=== PATIENT | female | born 1995 | race Caucasian/White ===

== ENCOUNTER 2019-03-25 13:08 | Observation (INO) ==
[~2019-03-25] VITALS: Ht 165.1 cm; Wt 92.0 kg
[2019-03-25] MEDS ORDERED: ONDANSETRON 2MG/ML, 2ML IVPush ONE (14:00)
[2019-03-25] MEDS ORDERED: LACTATED RINGERS 1,000 ML IVBOLUS ONE (14:00)
[2019-03-25] MEDS ORDERED: ONDANSETRON 2MG/ML, 2ML ONE (14:03)
[2019-03-25 14:10] VITALS: BP 121/69
[2019-03-25 14:35] LABS: MICROSCOPIC INDICATED
[2019-03-25] MEDS: LACTATED RINGERS 1,000 ML IV SCH ×2 (14:43→19:30)
[2019-03-25 15:03] LABS: RAPID INFLUENZA A Negative (Negative); RAPID INFLUENZA B Negative (Negative)
[2019-03-25] MEDS: D5%-LACTATED RINGERS 1,000 ML IV SCH ×2 (16:55→21:00)
[2019-03-25] MEDS ORDERED: PREN1TAB60 PO (17:54)
[2019-03-25 21:42] LABS: MICROSCOPIC INDICATED
[2019-03-25 21:54] LABS: CULTURE INDICATED? YES
== END 2019-03-25 21:55 | disposition home or self-care (01) ==
LOC: LDOP 13:08 → LDIP 15:54
PROVIDERS: ADMIT Obstetrics & Gynecology; ATTEND Obstetrics & Gynecology
DX: O21.2 Late vomiting of pregnancy (principal); Z3A.38 38 weeks gestation of pregnancy; Z79.899 Other long term (current) drug therapy
CPT/HCPCS: 59025; 81001; 81003; 87086; 87400; 96361; 96374; 99201; G0378; J2405; J7120; J7121; 96360; G0463

== ENCOUNTER 2019-03-26 06:37 | Inpatient (IN) | payer OTHER ==
[~2019-03-26] VITALS: Ht 165.1 cm; Wt 93.2 kg
[~2019-03-26 06:37] MED LIST: PREN1TAB60 PO
[2019-03-26] MEDS ORDERED: OXYTOCIN 30U/ 0.9% NaCL 500ML 500 ML IV ONE (06:55)
[2019-03-26] MEDS ORDERED: LACTATED RINGERS 1,000 ML IV SCH (06:55)
[2019-03-26] MEDS ORDERED: D5%-LACTATED RINGERS 1,000 ML IV SCH (06:55)
[2019-03-26] MEDS ORDERED: FENTANYL/BUPIV./NS/PF 250 ML EPIDCONT SCH (06:57)
[2019-03-26] MEDS ORDERED: FENTANYL PF 100 MCG/2ML IV PRN (07:00)
[2019-03-26] MEDS ORDERED: SODIUM CITRATE/CITRIC ACID 30 ML UDC PO PRN (07:00)
[2019-03-26] MEDS ORDERED: TERBUTALINE 1 MG/ML, 1ML IVPush PRN (07:00)
[2019-03-26] MEDS ORDERED: TERBUTALINE 1 MG/ML, 1ML SQ PRN (07:00)
[2019-03-26] MEDS ORDERED: SODIUM CHLORIDE FLUSH 10ML SYR IVF PRN (07:00)
[2019-03-26] MEDS ORDERED: ALUMINUM/MAG/SIMETHICONE 30 ML UDC PO PRN (07:00)
[2019-03-26] MEDS ORDERED: ONDANSETRON 2MG/ML, 2ML IVPush PRN (07:00)
[2019-03-26] MEDS ORDERED: METOCLOPRAMIDE 5 MG/ML, 2ML IVPush PRN (07:00)
[2019-03-26] MEDS ORDERED: CALCIUM CARBONATE 500 MG TAB.CHEW PO PRN (07:00)
[2019-03-26 07:24] LABS: BASOPHILS # (AUTO) 0.03 x10^3/uL (0-0.1); BASOPHILS % (AUTO) 0 % (0-1); EOSINOPHILS % (AUTO) 0 % (1-7); LYMPHOCYTES # (AUTO) 0.59 x10^3/uL (1-3.4); LYMPHOCYTES % (AUTO) 7 % (22-44); MD NO; MEAN CORPUSCULAR HEMOGLOBIN 27.7 pg (27.0-34.8); MEAN CORPUSCULAR HGB CONC 33.3 g/dL (32.4-35.8); MEAN CORPUSCULAR VOLUME 83.4 fL (80-100); MEAN PLATELET VOLUME 8.5 fL (7.4-10.4); MONOCYTES # (AUTO) 0.35 x10^3/uL (0.2-0.8); MONOCYTES % (AUTO) 4 % (2-9); NEUTROPHILS # (AUTO) 7.26 x10^3/uL (1.8-6.8); NEUTROPHILS % (AUTO) 88 % (42-75); PLATELET COUNT 194 x10^3/uL (130-400); RED BLOOD COUNT 4.82 x10^6/uL (3.82-5.3); RED CELL DISTRIBUTION WIDTH 14.4 % (9.6-15.2)
[2019-03-26] MEDS ORDERED: PLEASE ENTER HEIGHT AND WEIGHT MC SCH ×2 (08:30→09:00)
[2019-03-26] MEDS ORDERED: MISOPROSTOL 200 MCG TABLET ONE (09:30)
[2019-03-26] MEDS ORDERED: NEWBORN KIT ONE (09:30)
[2019-03-26] MEDS ORDERED: OXYTOCIN 30U/ 0.9% NaCL 500ML 500 ML ONE (09:30)
[2019-03-26] MEDS ORDERED: LIDOCAINE 1%, 20ML ONE (09:31)
[2019-03-26] MEDS ORDERED: OXYTOCIN 30U/ 0.9% NaCL 500ML 500 ML IV PRN (09:35)
[2019-03-26] MEDS ORDERED: TERBUTALINE 1 MG/ML, 1ML ONE (10:26)
[2019-03-26] MEDS ORDERED: CALCIUM CARBONATE 500 MG TAB.CHEW ONE (10:26)
[2019-03-26] MEDS ORDERED: FENTANYL PF 100 MCG/2ML ONE ×5 (11:08→17:02)
[2019-03-26] MEDS: FENTANYL PF 100 MCG/2ML IVPush PRN ×4 (11:10→15:53)
[2019-03-26] MEDS ORDERED: FENTANYL PF 500 MCG, BUPIVACAINE/PF 0.5%, 30ML 62.5 ML in SODIUM CHLORIDE 0.9% 177.5 ML EPIDCONT SCH (11:30)
[2019-03-26] MEDS ORDERED: BUPIVACAINE 0.25% ONE (18:10)
[2019-03-26] MEDS ORDERED: LIDOCAINE/PF 1.5%-EPI 1:200K, 30ML ONE (18:15)
[2019-03-26] MEDS ORDERED: FENTANYL/BUPIV./NS/PF 250 ML EPIDCONT ONE (18:15)
[2019-03-26 19:44] VITALS: BP 119/65
[2019-03-26] MEDS ORDERED: LACTATED RINGERS 1,000 ML IVBOLUS PRN (20:00)
[2019-03-26] MEDS ORDERED: EPHEDRINE 50 MG/ML, 1ML IVPush PRN (20:00)
[2019-03-27] MEDS ORDERED: MISOPROSTOL 200 MCG TABLET PR PRN (00:30)
[2019-03-27] MEDS ORDERED: METHYLERGONOVINE 0.2 MG/ML IM PRN (00:30)
[2019-03-27] MEDS ORDERED: GLYCERIN ADULT SUPP PR PRN (00:30)
[2019-03-27] MEDS ORDERED: BISACODYL 10 MG SUPP PR PRN (00:30)
[2019-03-27] MEDS ORDERED: OXYcodone/APAP 5/325MG TABLET PO PRN (00:30)
[2019-03-27] MEDS ORDERED: ACETAMINOPHEN 325 MG TABLET PO PRN (00:30)
[2019-03-27] MEDS ORDERED: CARBOPROST TROMETHAMINE 250 MCG/ML, 1ML IM PRN (00:30)
[2019-03-27] MEDS ORDERED: METOCLOPRAMIDE 5 MG/ML, 2ML IV PRN (00:30)
[2019-03-27] MEDS ORDERED: IBUPROFEN 800 MG TABLET PO PRN (00:30)
[2019-03-27] MEDS ORDERED: ONDANSETRON 2MG/ML, 2ML IV PRN (00:30)
[2019-03-27] MEDS ORDERED: SIMETHICONE 80 MG CHEW TAB PO PRN (00:30)
[2019-03-27] MEDS ORDERED: IBUPROFEN 600 MG TABLET ONE (01:24)
[2019-03-27] MEDS ORDERED: OXYTOCIN 30U/ 0.9% NaCL 500ML 500 ML ONE (01:24)
[2019-03-27] MEDS: IBUPROFEN 600 MG TABLET PO PRN ×3 (01:29→17:28)
[2019-03-27] MEDS: LACTATED RINGERS 1,000 ML IV SCH ×4 (01:30→19:31)
[2019-03-27] MEDS: OXYTOCIN 30U/ 0.9% NaCL 500ML 500 ML IV SCH ×3 (01:30→20:02)
[2019-03-27 03:00] VITALS: BP 105/69
[2019-03-27] MEDS: OXYcodone/APAP 5/325MG TABLET PO PRN ×3 (06:35→17:28)
[2019-03-27 07:49] LABS: MEAN CORPUSCULAR HEMOGLOBIN 28.3 pg (27.0-34.8); MEAN CORPUSCULAR HGB CONC 33.5 g/dL (32.4-35.8); MEAN CORPUSCULAR VOLUME 84.6 fL (80-100); MEAN PLATELET VOLUME 9.2 fL (7.4-10.4); PLATELET COUNT 173 x10^3/uL (130-400); RED BLOOD COUNT 4.43 x10^6/uL (3.82-5.3); RED CELL DISTRIBUTION WIDTH 14.4 % (9.6-15.2)
[2019-03-27 08:39] LABS: BASOPHILS # (AUTO) 0.04 x10^3/uL (0-0.1); BASOPHILS % (AUTO) 0 % (0-1); EOSINOPHILS # (AUTO) 0.05 x10^3/uL (0-0.4); EOSINOPHILS % (AUTO) 0 % (1-7); LYMPHOCYTES # (AUTO) 1.33 x10^3/uL (1-3.4); LYMPHOCYTES % (AUTO) 9 % (22-44); MD SCAN; MONOCYTES % (AUTO) 5 % (2-9); NEUTROPHILS % (AUTO) 85 % (42-75)
[2019-03-27 10:09] VITALS: BP 111/74
[2019-03-27] MEDS: DOCUSATE 100 MG CAPSULE PO PRN (10:34)
[2019-03-27] MEDS: PRENATAL VIT/IRON/FA 1 EACH TABLET PO SCH (10:34)
[2019-03-27 12:16] VITALS: BP 108/69
[2019-03-27 20:00] VITALS: BP 125/76
[2019-03-28] MEDS: IBUPROFEN 600 MG TABLET PO PRN ×2 (04:50→11:18)
[2019-03-28] MEDS: OXYcodone/APAP 5/325MG TABLET PO PRN ×2 (04:50→11:18)
[2019-03-28 11:00] VITALS: BP 120/78
[2019-03-28] MEDS: DOCUSATE 100 MG CAPSULE PO PRN (11:18)
[2019-03-28] MEDS: PRENATAL VIT/IRON/FA 1 EACH TABLET PO SCH (11:18)
[2019-03-28] MEDS ORDERED: IBUP-1222 PO (13:26)
[2019-03-28] MEDS ORDERED: OXYC-302 PO (13:26)
== END 2019-03-28 15:52 | disposition home or self-care (01) | DRG 807 ==
LOC: LDOP 06:37 → LDIP 07:19 → 2NW 03-27 02:54
PROVIDERS: ADMIT Obstetrics & Gynecology; ATTEND Obstetrics & Gynecology
PROC: 10E0XZZ Delivery of Products of Conception, External Approach (ICD-10-PCS; principal; 2019-03-26)
PROC: 0KQM0ZZ Repair Perineum Muscle, Open Approach (ICD-10-PCS; 2019-03-26)
PROC: 0UQMXZZ Repair Vulva, External Approach (ICD-10-PCS; 2019-03-26)
PROC: 3E0R3BZ Introduction of Anesthetic Agent into Spinal Canal, Percutaneous Approach (ICD-10-PCS; 2019-03-26)
PROC: 00HU33Z Insertion of Infusion Device into Spinal Canal, Percutaneous Approach (ICD-10-PCS; 2019-03-26)
DX: O42.02 Full-term premature rupture of membranes, onset of labor within 24 hours of rupture (principal); Z37.0 Single live birth; Z3A.38 38 weeks gestation of pregnancy; O70.1 Second degree perineal laceration during delivery; Z80.3 Family history of malignant neoplasm of breast; Z82.3 Family history of stroke; Z82.49 Family history of ischemic heart disease and other diseases of the circulatory system
CPT/HCPCS: 36415; J3490; J7121; 85025; 86850; 86900; G0378; J3010; J2590; J7120